=== PATIENT | male | born 1995 | race Caucasian/White ===

== ENCOUNTER 2016-11-21 07:36 | Emergency (ER) | payer OTHER ==
[2016-11-21 07:46] VITALS: BP 112/72
[2016-11-21 08:50] LABS: Basophils % (Auto) 0.2 % (0.0-1.8); Eosinophils % (Auto) 0.7 % (0.0-4.3); Hematocrit 49.7 % (35.5-45.6); Hemoglobin 17.1 gm/dl (11.8-15.2); Mean Corpuscular HGB Conc 35 % (32-34); Mean Corpuscular Hemoglobin 29 pg (28-32); Mean Corpuscular Volume 83 fl (84-94); Platelet Count 221 K/mm3 (140-440); Red Blood Count 6.02 M/mm3 (3.65-5.03); Red Cell Distribution Width 13.7 % (13.2-15.2); White Blood Count 13.1 K/mm3 (4.5-11.0)
[2016-11-21 08:57] LABS: Bilirubin,Urine NEG (Negative); Blood,Urine NEG (Negative); Ketones,Urine NEG (Negative); Leukocyte Esterase,Urine NEG (Negative); Nitrite,Urine NEG (Negative); Protein,Urine <15 mg/dL mg/dL (Negative); Urobilinogen,Urine < 2.0 mg/dL (<2.0); WBC,Urine < 1.0 /HPF (0.0-6.0)
[2016-11-21 09:02] LABS: Anion Gap 19 mmol/L; BUN/Creatinine Ratio 12.22; Blood Urea Nitrogen 11 mg/dL (9-20); Calcium 9.5 mg/dL (8.4-10.2); Carbon Dioxide 27 mmol/L (22-30); Chloride 100.4 mmol/L (98-107); Glucose 91 mg/dL (75-100); Potassium 4.5 mmol/L (3.6-5.0); Sodium 142 mmol/L (137-145)
[2016-11-21] MEDS ORDERED: BENTYL PO ONE ×2 (09:30→09:35)
[2016-11-21] MEDS ORDERED: ZOFRAN ODT PO ONE (09:35)
--- NOTE | 2016-11-21 09:35 | Emergency Department Report ---
Vomiting/Diarrhea - HPI Chief Complaint: Nausea/Vomiting/Diarrhea Stated Complaint: DIARRHEA Time Seen by Provider: 11/21/16 09:05 Duration: 2 Days Severity: moderate Nausea/Vomiting Severity: Mild Diarrhea Severity: Moderate Pain Location: Epigastric (cramping on and off) Pain Severity: Mild (2 out of 10) Symptoms: Yes Able to Tolerate Fluids, Yes Recent Unusual Foods, No Watery Diarrhea (patient reports stool has been bright consistency that you can slice) , No Bloody diarrhea, No Fever, No Recent Untreated Water, No Recent use of Antibiotics, No Family w/ Similar Symptoms, No Contacts w/ Similar Symptoms, No Rash, No Hematuria, No Recent URI Symptoms Other History: Report that he's been having in frequent stool with some nausea and abdominal cramping over the past couple days. He said the stool consistency is red like that you can flies. He had last stool at 5 AM this morning. Denies any fever or chills. Pain is 2 out of 10 that is cramping to her abdomen and it's on and off. Denies any blood in his stool. Denies any vomiting. No [id number] medication taken. Denies any recent R call use or any history of stomach ulcer. Denies any weakness. Denies any urinary burning frequency or urgency. He should also report that he's been under a lot of stress lately. ED Review of Systems ROS: Stated complaint: DIARRHEA Other details as noted in HPI Comment: All other systems reviewed and negative Constitutional: no symptoms reported Respiratory: no symptoms reported Cardiovascular: denies: chest pain, palpitations, edema, syncope Gastrointestinal: abdominal pain (cramping on and off), nausea, diarrhea. denies: vomiting, constipation, hematemesis, melena, hematochezia Genitourinary: denies: urgency, dysuria, frequency, hematuria, discharge, testicular pain, testicular mass Musculoskeletal: denies: back pain, joint swelling, arthralgia, myalgia Skin: denies: rash Neurological: denies: headache, weakness, numbness, paresthesias, confusion, abnormal gait, vertigo ED Past Medical Hx - Past Medical History Previous Medical History?: Yes - Surgical History Past Surgical History?: No - Family History Family history: no significant - Social History Smoking Status: Never Smoker Substance Use Type: None - Medications Home Medications: Home Medications Medication Instructions Recorded Confirmed Last Taken Type Amoxicillin [Trimox CAP] 500 mg PO Q8H #30 capsule 04/28/15 Unknown Rx Loratadine [Claritin] 10 mg PO DAILY #30 tablet 04/28/15 Unknown Rx Prednisone [predniSONE 10 mg 10 mg PO .TAPER #1 tab.ds.pk 04/28/15 Unknown Rx (6-Day Pack, 21 Tabs)] Promethazine /Codeine 5 ml PO Q6H PRN #150 ml 04/28/15 Unknown Rx [Phenergan/Codeine 6.25-10 mg/5 ml] Dicyclomine [Bentyl] 20 mg PO TID #9 bottle 11/21/16 Unknown Rx Ondansetron [Zofran Odt] 4 mg PO Q8HR #9 tab.rapdis 11/21/16 Unknown Rx Vomiting Diarrhea Exam - Exam General: Vital signs noted. No distress. Alert and acting appropriately. Is a 21-year-old male well-nourished well-developed and nontoxic in appearance. HEENT: Yes Moist Mucous Membranes, No Pharyngeal Erythema, No Pharyngeal Exudates, No Rhinorrhea, No Conjuctival Injection, No Frontal Tenderness, No Maxillary Tenderness Neck: No Adenopathy, No Rigidity Lungs: Yes Clear Lung Sounds, Yes Good Air Exchange, No Wheezes, No Stridor, No Cough, No Nasal Flaring, No Retractions, No Use of Accessory Muscles Heart exam: Regular: Yes, Murmur: No, Tachycardia: No Abdomen: Tenderness: No, Peritoneal Signs: No, Distention: No, Hyperactive Bowel sounds: No (mode bowel sounds.) Skin exam: Rash: No, Edema: No, Normal turgor: Yes Neurologic: Alert and oriented, no deficits. No focal neurological deficit. Musculoskeletal: Unremarkable. Normal examination ED Course Vital Signs 11/21/16 11/21/16 07:45 07:46 Temperature 98.2 F 98.2 F Pulse Rate 58 L 58 L Respiratory 16 16 Rate Blood Pressure 112/72 Blood Pressure 112/72 [Right] O2 Sat by Pulse 97 97 Oximetry - Reevaluation(s) Reevaluation #1: 11/21/16 10:41 until 40 mg by mouth and Zofran 4 mg ODT for nausea and stomach upset. He was also orally challenged in emergency room where he drank 3 cups of apple juice. Patient had no episode of vomiting or diarrhea while in the emergency room. Patient said he feels that much better. ED Medical Decision Making - Lab Data Result diagrams: 11/21/16 08:26 11/21/16 08:26 Lab Results 11/21/16 11/21/16 11/21/16 Range/Units 08:26 08:26 08:35 WBC 13.1 H (4.5-11.0) K/mm3 RBC 6.02 H (3.65-5.03) M/mm3 Hgb 17.1 H (11.8-15.2) gm/dl Hct 49.7 H (35.5-45.6) % MCV 83 L (84-94) fl MCH 29 (28-32) pg MCHC 35 H (32-34) % RDW 13.7 (13.2-15.2) % Plt Count 221 (140-440) K/mm3 Lymph % (Auto) 21.6 (13.4-35.0) % [place] % (Auto) 7.0 (0.0-7.3) % Eos % (Auto) 0.7 (0.0-4.3) % Baso % (Auto) 0.2 (0.0-1.8) % Lymph # 2.8 (1.2-5.4) K/mm3 [place] # 0.9 H (0.0-0.8) K/mm3 Eos # 0.1 (0.0-0.4) K/mm3 Baso # 0.0 (0.0-0.1) K/mm3 Seg Neutrophils % 70.5 H (40.0-70.0) % Seg Neutrophils # 9.3 H (1.8-7.7) K/mm3 Sodium 142 (137-145) mmol/L Potassium 4.5 (3.6-5.0) mmol/L Chloride 100.4 (98-107) mmol/L Carbon Dioxide 27 (22-30) mmol/L Anion Gap 19 mmol/L BUN 11 (9-20) mg/dL Creatinine 0.9 (0.8-1.5) mg/dL Estimated GFR > 60 ml/min BUN/Creatinine Ratio 12.22 % Glucose 91 (75-100) mg/dL Calcium 9.5 (8.4-10.2) mg/dL Urine Color Yellow (Yellow) Urine Turbidity Clear (Clear) Urine pH 6.0 (5.0-7.0) Ur Specific [place] 1.014 (1.003-1.030) Urine Protein <15 mg/dl (Negative) mg/dL Urine Glucose (UA) Neg (Negative) mg/dL Urine Ketones Neg (Negative) mg/dL Urine Blood Neg (Negative) Urine Nitrite Neg (Negative) Urine Bilirubin Neg (Negative) Urine Urobilinogen < 2.0 (<2.0) mg/dL Ur Leukocyte Esterase Neg (Negative) Urine WBC (Auto) < 1.0 (0.0-6.0) /HPF Urine RBC (Auto) 2.0 (0.0-6.0) /HPF - Medical Decision Making ED course: Pt here complaining of mild nausea with recurrent stool in and stomach upset for a few days. He is able to tolerate oral liquids. Patient was given Bentyl 40 mg by mouth, Zofran 4 mg ODT and was orally challenged in emergency room and drank 3 cups of apple juice without any nausea vomiting or diarrhea. He said he was feeling much better after drinking juice. Patient and CBC shows mild elevation in white count and hemoconcentration which suggests possible dehydration. BMP is stable and urinalysis is stable. I discussed the patient that he needs to eat a diet that is planned over the next 72 hours to include banana , rice, apple sauce and toast. I also encouraged him to avoid eating acidic and carbonated beverage and to drink 2-3 L of fluid to include Gatorade so he does not lose any electrolyte. Patient with nausea, stomach cramping and diarrhea. I discussed his lab work with him and he voiced understanding of diagnosis and treatment plan. Patient discharged home with prescription for Zofran, Benadryl. Critical care attestation.: If time is entered above; I have spent that time in minutes in the direct care of this critically ill patient, excluding procedure time. ED Disposition Clinical Impression: Acute diarrhea, Nausea alone, Abdominal cramps Disposition: TO HOME OR SELFCARE Is pt being admited?: No Does the pt Need Aspirin: No Condition: Stable Instructions: Acute Nausea and Vomiting (ED), Abdominal Pain (ED), Acute Diarrhea (ED), Gastroenteritis (ED), Nutrition Tips for Relief of Diarrhea (ED) Additional Instructions: increase your fluid intake to include water and Gatorade up to 2-3 L per day. Take Bentyl and Zofran as prescribed Follow-up via primary care physician in 2 days if he do not have one he can follow-up at [facility]. These followed discharge instruction diet Eat diet consisting of banana, rice, applesauce and toast. Please avoid carbonated and spicy food. Prescriptions: Dicyclomine [Bentyl] 20 mg PO TID #9 bottle Ondansetron [Zofran Odt] 4 mg PO Q8HR #9 tab.rapdis Referrals: PRIMARY CARE [Primary Care Provider] - 11/23/16 [facility] [Outside] - 11/23/16 Forms: Accompanied Note, Work/School Release Form(ED)
[2016-11-21] MEDS ORDERED: BENTYL ONE (09:41)
== END 2016-11-21 11:00 | disposition home or self-care (01) ==
LOC: ED 07:36
DX: R19.7 Diarrhea, unspecified (principal); R10.9 Unspecified abdominal pain; R11.0 Nausea
CPT/HCPCS: 36415; 80048; 81001; 85025; 99283; Q0162

== ENCOUNTER 2016-12-02 21:01 | Emergency (ER) | payer OTHER ==
[2016-12-02 21:51] LABS: Hematocrit 48.5 % (35.5-45.6); Hemoglobin 16.8 gm/dl (11.8-15.2); Mean Corpuscular HGB Conc 35 % (32-34); Mean Corpuscular Hemoglobin 28 pg (28-32); Mean Corpuscular Volume 82 fl (84-94); Platelet Count 203 K/mm3 (140-440); Red Blood Count 5.95 M/mm3 (3.65-5.03); Red Cell Distribution Width 13.6 % (13.2-15.2); White Blood Count 10.3 K/mm3 (4.5-11.0)
[2016-12-02 21:54] LABS: Bilirubin,Urine NEG (Negative); Blood,Urine NEG (Negative); Ketones,Urine NEG (Negative); Leukocyte Esterase,Urine NEG (Negative); Mucus,Urine FEW /HPF; Nitrite,Urine NEG (Negative); Protein,Urine <15 mg/dL mg/dL (Negative); RBC,Urine < 1.0 /HPF (0.0-6.0); Urobilinogen,Urine < 2.0 mg/dL (<2.0); WBC,Urine < 1.0 /HPF (0.0-6.0)
[2016-12-02 21:58] LABS: Alanine Aminotransferase 40 units/L (7-56); Albumin 4.4 g/dL (3.9-5); Albumin/Globulin Ratio 1.6 %; Alkaline Phosphatase 89 units/L (35-129); Anion Gap 18 mmol/L; BUN/Creatinine Ratio 14; Blood Urea Nitrogen 15 mg/dL (9-20); Calcium 9.5 mg/dL (8.4-10.2); Carbon Dioxide 28 mmol/L (22-30); Chloride 100.7 mmol/L (98-107); Glucose 97 mg/dL (75-100); Lipase 29 units/L (13-60); Potassium 4.3 mmol/L (3.6-5.0); Sodium 142 mmol/L (137-145); Total Protein 7.1 g/dL (6.3-8.2)
[2016-12-02 23:02] LABS: Basophils % (Manual) 0 % (0.0-1.8); Blastocytes % (Manual) 0 %; Eosinophils % (Manual) 0 % (0.0-4.3); RBC Morphology Normal
[2016-12-02 23:03] LABS: Diff Status Complete
[2016-12-03] MEDS ORDERED: BENTYL IM ONE (01:07)
[2016-12-03] MEDS ORDERED: TORADOL IM ONE (01:07)
--- NOTE | 2016-12-03 01:13 | Emergency Department Report ---
ED Abdominal Pain HPI - General Chief Complaint: Abdominal Pain Stated Complaint: lower abd pain Time Seen by Provider: 12/02/16 23:54 Source: patient Mode of arrival: Ambulatory Limitations: No Limitations - History of Present Illness Initial Comments: Pt presents to ED with abdominal pains located in his LLQ x 1 day. Pain is colicky in nature and radiates across his lower abdomin to his suprapubic region. Pt denies N/V/D. Pt has almost similar problem on 11/21/16. No fever, no cough. Pt recalls havinh infrequent bowel movements Complaint: abdominal pain -: Gradual, days(s) (1) Location: LLQ Radiation: suprapubic Migration to: no migration Severity: moderate Severity scale (0 -10): 6 Quality: stabbing, aching, sharp Consistency: intermittent Improves With: nothing Worsens With: nothing Associated Symptoms: constipation. denies: nausea, vomiting, diarrhea, fever, chills, dysuria, hematemesis, hematochezia, melena, hematuria, anorexia, syncope - Related Data Previous Rx's Medication Instructions Recorded Last Taken Type Amoxicillin [Trimox CAP] 500 mg PO Q8H #30 capsule 04/28/15 Unknown Rx Loratadine [Claritin] 10 mg PO DAILY #30 tablet 04/28/15 Unknown Rx Prednisone [predniSONE 10 mg 10 mg PO .TAPER #1 tab.ds.pk 04/28/15 Unknown Rx (6-Day Pack, 21 Tabs)] Promethazine /Codeine 5 ml PO Q6H PRN #150 ml 04/28/15 Unknown Rx [Phenergan/Codeine 6.25-10 mg/5 ml] Dicyclomine [Bentyl] 20 mg PO TID #9 bottle 11/21/16 Unknown Rx Ondansetron [Zofran Odt] 4 mg PO Q8HR #9 tab.rapdis 11/21/16 Unknown Rx Hyoscyamine Subl [Levsin Sl 0.125 0.25 mg SL Q6HR PRN #32 tab 12/03/16 Unknown Rx TAB] Ibuprofen [Motrin 600 MG tab] 600 mg PO Q6H PRN #30 tablet 12/03/16 Unknown Rx Lactulose [Cephulac] 20 gm PO Q12H #300 ml 12/03/16 Unknown Rx Ondansetron [Zofran Odt] 4 mg PO Q8H PRN #020 tab.rapdis 12/03/16 Unknown Rx Allergies Allergy/AdvReac Type Severity Reaction Status Date / Time No Known Allergies Allergy Verified 11/21/16 09:42 ED Review of Systems ROS: Stated complaint: lower abd pain Other details as noted in HPI Comment: All other systems reviewed and negative Constitutional: denies: chills, diaphoresis, fever, malaise, weakness Eyes: denies: eye pain, eye discharge, vision change ENT: denies: ear pain, throat pain, dental pain, hearing loss Respiratory: denies: cough, orthopnea, shortness of breath, SOB with exertion, wheezing Cardiovascular: denies: chest pain, palpitations, dyspnea on exertion, edema, syncope Endocrine: no symptoms reported Gastrointestinal: abdominal pain, constipation. denies: nausea, vomiting, diarrhea, hematemesis, hematochezia Genitourinary: denies: urgency, dysuria, frequency, hematuria Musculoskeletal: denies: joint swelling, arthralgia Skin: denies: as per HPI, lesions, change in color, change in hair/nails ED Past Medical Hx - Past Medical History Previous Medical History?: Yes Hx Hypertension: Yes - Surgical History Past Surgical History?: No - Social History Smoking Status: Never Smoker - Medications Home Medications: Home Medications Medication Instructions Recorded Confirmed Last Taken Type Amoxicillin [Trimox CAP] 500 mg PO Q8H #30 capsule 04/28/15 Unknown Rx Loratadine [Claritin] 10 mg PO DAILY #30 tablet 04/28/15 Unknown Rx Prednisone [predniSONE 10 mg 10 mg PO .TAPER #1 tab.ds.pk 04/28/15 Unknown Rx (6-Day Pack, 21 Tabs)] Promethazine /Codeine 5 ml PO Q6H PRN #150 ml 04/28/15 Unknown Rx [Phenergan/Codeine 6.25-10 mg/5 ml] Dicyclomine [Bentyl] 20 mg PO TID #9 bottle 11/21/16 Unknown Rx Ondansetron [Zofran Odt] 4 mg PO Q8HR #9 tab.rapdis 11/21/16 Unknown Rx Hyoscyamine Subl [Levsin Sl 0.125 0.25 mg SL Q6HR PRN #32 tab 12/03/16 Unknown Rx TAB] Ibuprofen [Motrin 600 MG tab] 600 mg PO Q6H PRN #30 tablet 12/03/16 Unknown Rx Lactulose [Cephulac] 20 gm PO Q12H #300 ml 12/03/16 Unknown Rx Ondansetron [Zofran Odt] 4 mg PO Q8H PRN #020 tab.rapdis 12/03/16 Unknown Rx ED Physical Exam - General Limitations: No Limitations General appearance: alert, in distress (in mild to moderate distress) - Head Head exam: Present: atraumatic, normocephalic, normal inspection - Eye Eye exam: Present: normal appearance, PERRL, EOMI. Absent: scleral icterus, conjunctival injection, nystagmus Pupils: Present: normal accommodation - ENT ENT exam: Present: normal exam, normal orophraynx, mucous membranes moist, TM's normal bilaterally - Neck Neck exam: Present: normal inspection, full ROM. Absent: tenderness, meningismus, lymphadenopathy - Respiratory Respiratory exam: Present: normal lung sounds bilaterally. Absent: wheezes, rales, rhonchi, stridor, chest wall tenderness, accessory muscle use, decreased breath sounds, prolonged expiratory - Cardiovascular Cardiovascular Exam: Present: bradycardia, normal heart sounds. Absent: regular rate, tachycardia, irregular rhythm, systolic murmur, diastolic murmur - GI/Abdominal GI/Abdominal exam: Present: soft, tenderness (LLQ), guarding (mild), diminished bowel sounds. Absent: rebound, rigid, pulsatile mass, hernia - Rectal Rectal exam: Present: deferred - Extremities Exam Extremities exam: Present: normal inspection, normal capillary refill. Absent: full ROM, tenderness, pedal edema, joint swelling - Back Exam Back exam: Present: normal inspection, full ROM. Absent: tenderness, CVA tenderness (L) - Neurological Exam Neurological exam: Present: alert, oriented X3, CN II-XII intact, normal gait ED Course Vital Signs 12/02/16 12/03/16 21:07 01:40 Temperature 69.9 F L Pulse Rate 54 L Respiratory 18 18 Rate Blood Pressure 118/71 O2 Sat by Pulse 98 Oximetry - Reevaluation(s) Reevaluation #1: 12/03/16 01:54 pT FEELS SLIGHTLY BETTER AFTER im bENTYL AND TORADOL ED Medical Decision Making - Lab Data Result diagrams: 12/02/16 21:21 12/02/16 21:21 Critical Care Time: No Critical care attestation.: If time is entered above; I have spent that time in minutes in the direct care of this critically ill patient, excluding procedure time. ED Disposition Clinical Impression: Fecal impaction of colon, Abdominal cramps Disposition: TO HOME OR SELFCARE Is pt being admited?: No Does the pt Need Aspirin: No Condition: Stable Instructions: Fecal Impaction (ED) Additional Instructions: Follow up with your PCP in 2-3 days Prescriptions: Hyoscyamine Subl [Levsin Sl 0.125 TAB] 0.25 mg SL Q6HR PRN #32 tab PRN Reason: Colic Ibuprofen [Motrin 600 MG tab] 600 mg PO Q6H PRN #30 tablet PRN Reason: Pain Lactulose [Cephulac] 20 gm PO Q12H #300 ml Ondansetron [Zofran Odt] 4 mg PO Q8H PRN #020 tab.rapdis PRN Reason: Nausea Referrals: PRIMARY CARE,MD [Primary Care Provider] - 3-5 Days Time of Disposition: 02:00
[2016-12-03 02:22] VITALS: BP 117/51
== END 2016-12-03 02:22 | disposition home or self-care (01) ==
LOC: ED 21:01
DX: K56.41 Fecal impaction (principal); I10 Essential (primary) hypertension
CPT/HCPCS: 36415; 80053; 81001; 83690; 85007; 85025; 96372; 99283; J0500; J1885

== ENCOUNTER 2017-03-04 10:20 | Emergency (ER) | payer SELFPAY ==
--- NOTE | 2017-03-04 10:52 | XRay Report ---
Right hand 3 views: History: Pain and swelling. Findings: No bony or articular abnormality. No fracture dislocation or soft tissue calcification. Impression: Essentially negative right hand.
[2017-03-04] MEDS ORDERED: MOTRIN PO ONE (13:45)
--- NOTE | 2017-03-04 13:48 | Emergency Department Report ---
ED Upper Extremity Inj HPI - General Chief Complaint: Extremity Injury, Upper Stated Complaint: RIGHT HAND PAIN Source: patient Mode of arrival: Ambulatory Limitations: No Limitations - History of Present Illness Initial Comments: 22 y/o nontoxic in appearance M presents today complaining of R ulnar side knuckle pain and swelling. Pt states that he was angry last night and punched the door. He states this happened about 5 AM yesterday morning. Pt reports to pain and swelling at the site. He states that he pain increases with flexing the 5th right digit. Pt has not tried anything for the pain at this time. 9/ 10 in severity at this time. NKDA. DUCKWORTH Complaint: Injury to:: right, hand -: days(s) (1) Other Extremity Injury: Fingers: Right (mostly at the ulnar aspect of the R 5th digit- knuckle region), Hand: Right (at the 5th knuckle region) Other Injuries: none Handedness: right Place: home Severity scale (0 -10): 9 Improves With: none Worsens With: none Context: injury - Related Data Previous Rx's Medication Instructions Recorded Last Taken Type Amoxicillin [Trimox CAP] 500 mg PO Q8H #30 capsule 04/28/15 Unknown Rx Loratadine [Claritin] 10 mg PO DAILY #30 tablet 04/28/15 Unknown Rx Prednisone [predniSONE 10 mg 10 mg PO .TAPER #1 tab.ds.pk 04/28/15 Unknown Rx (6-Day Pack, 21 Tabs)] Promethazine /Codeine 5 ml PO Q6H PRN #150 ml 04/28/15 Unknown Rx [Phenergan/Codeine 6.25-10 mg/5 ml] Dicyclomine [Bentyl] 20 mg PO TID #9 bottle 11/21/16 Unknown Rx Ondansetron [Zofran Odt] 4 mg PO Q8HR #9 tab.rapdis 11/21/16 Unknown Rx Hyoscyamine Subl [Levsin Sl 0.125 0.25 mg SL Q6HR PRN #32 tab 12/03/16 Unknown Rx TAB] Ibuprofen [Motrin 600 MG tab] 600 mg PO Q6H PRN #30 tablet 12/03/16 Unknown Rx Lactulose [Cephulac] 20 gm PO Q12H #300 ml 12/03/16 Unknown Rx Ondansetron [Zofran Odt] 4 mg PO Q8H PRN #020 tab.rapdis 12/03/16 Unknown Rx Diclofenac Sodium 50 mg PO BID PRN #20 tab 03/04/17 Unknown Rx Allergies Allergy/AdvReac Type Severity Reaction Status Date / Time No Known Allergies Allergy Verified 03/04/17 10:28 ED Review of Systems ROS: Stated complaint: RIGHT HAND PAIN Other details as noted in HPI Constitutional: denies: chills, fever Eyes: denies: eye pain, eye discharge, vision change ENT: denies: ear pain, throat pain Respiratory: denies: cough, shortness of breath, wheezing Cardiovascular: denies: chest pain, palpitations Gastrointestinal: denies: abdominal pain, nausea, diarrhea Genitourinary: denies: urgency, dysuria Musculoskeletal: joint swelling, myalgia, other (5th digit right- knuckle pain and swelling ) Skin: other (redness and swelling at the ulnar aspect of the right hand) Neurological: denies: headache, weakness, paresthesias Psychiatric: denies: anxiety, depression Hematological/Lymphatic: denies: easy bleeding, easy bruising ED Past Medical Hx - Past Medical History Previous Medical History?: No Hx Hypertension: Yes - Surgical History Past Surgical History?: No - Social History Smoking Status: Never Smoker Substance Use Type: None - Medications Home Medications: Home Medications Medication Instructions Recorded Confirmed Last Taken Type Amoxicillin [Trimox CAP] 500 mg PO Q8H #30 capsule 04/28/15 Unknown Rx Loratadine [Claritin] 10 mg PO DAILY #30 tablet 04/28/15 Unknown Rx Prednisone [predniSONE 10 mg 10 mg PO .TAPER #1 tab.ds.pk 04/28/15 Unknown Rx (6-Day Pack, 21 Tabs)] Promethazine /Codeine 5 ml PO Q6H PRN #150 ml 04/28/15 Unknown Rx [Phenergan/Codeine 6.25-10 mg/5 ml] Dicyclomine [Bentyl] 20 mg PO TID #9 bottle 11/21/16 Unknown Rx Ondansetron [Zofran Odt] 4 mg PO Q8HR #9 tab.rapdis 11/21/16 Unknown Rx Hyoscyamine Subl [Levsin Sl 0.125 0.25 mg SL Q6HR PRN #32 tab 12/03/16 Unknown Rx TAB] Ibuprofen [Motrin 600 MG tab] 600 mg PO Q6H PRN #30 tablet 12/03/16 Unknown Rx Lactulose [Cephulac] 20 gm PO Q12H #300 ml 12/03/16 Unknown Rx Ondansetron [Zofran Odt] 4 mg PO Q8H PRN #020 tab.rapdis 12/03/16 Unknown Rx Diclofenac Sodium 50 mg PO BID PRN #20 tab 03/04/17 Unknown Rx ED Physical Exam - General Limitations: No Limitations General appearance: alert, in no apparent distress - Head Head exam: Present: atraumatic, normocephalic - Eye Eye exam: Present: normal appearance, PERRL, EOMI - ENT ENT exam: Present: mucous membranes moist - Neck Neck exam: Present: normal inspection - Respiratory Respiratory exam: Present: normal lung sounds bilaterally. Absent: respiratory distress - Cardiovascular Cardiovascular Exam: Present: regular rate, normal rhythm. Absent: systolic murmur, diastolic murmur, rubs, gallop - Extremities Exam Extremities exam: Present: tenderness, joint swelling, other (of the affected R hand- ulnar aspect) - Expanded Upper Extremity Exam Right Upper Arm exam: Present: normal inspection, full ROM Elbow exam: Present: normal inspection, full ROM Forearm Wrist exam: Present: normal inspection, full ROM Hand Wrist exam: Present: other (there is swelling and ttp at the knuckle aspect of the 4th and 5th right hand, no open injury, increased pain with flexion of the digits, however, ROM is normal, sensation and pulses are normal, 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 Absent: rash ED Course Vital Signs 03/04/17 03/04/17 10:24 14:31 Temperature 98.5 F Pulse Rate 99 H 79 Respiratory 16 18 Rate Blood Pressure 115/60 Blood Pressure 124/57 [Right] O2 Sat by Pulse 97 99 Oximetry ED Medical Decision Making - Radiology Data Radiology results: report reviewed right hand xr: no bony or articular abnormality. no fracture dislocation or soft tissue calcifitcation. impression: essentially negative right hand. - Medical Decision Making Hx of right hand injury/contusion s/p punching a wall. Xray of right was unremarkable for any acute issues. Pt was given Ibuprofen 600 mg here in the ED with relief of the pain, he was then discharged home with Diclofenac sodium 50 mg BID for the painn, RICE therapy was encouraged, and MARIA INES wrap was provided. Pt was given a referral to orthopedics. he was alert and oriented, no resp distress, speaking full sentences, and vitals stable upon discharge. Hemodynamically and neurovascularly intact. Critical care attestation.: If time is entered above; I have spent that time in minutes in the direct care of this critically ill patient, excluding procedure time. ED Disposition Clinical Impression: Contusion of right hand Qualifiers: Encounter type: initial encounter Qualified Code(s): S60.221A - Contusion of right hand, initial encounter Disposition: - TO HOME OR SELFCARE Is pt being admited?: No Does the pt Need Aspirin: No Condition: Stable Instructions: Diclofenac (By mouth), Contusion in Adults (ED), RICE Therapy (ED ) Additional Instructions: Please take anti-inflammatory as needed for the pain. RICE= rest, ice, compress , and elevate the joint above the level of the heart. Please follow-up with PCP within 1 week. Orthopedic referral provided for you today. Return to the ER immediately if your presenting symptoms acutely progress or worsen. Prescriptions: Diclofenac Sodium 50 mg PO BID PRN #20 tab PRN Reason: inflammation and swelling Referrals: STEVE HOLLEY MD [Primary Care Provider] - 3-5 Days RICK WARNER MD [Staff Physician] - 3-5 Days Forms: Work/School Release Form(ED)
[2017-03-04 14:31] VITALS: BP 124/57
== END 2017-03-04 15:28 | disposition home or self-care (01) ==
LOC: ED 10:20
DX: S60.221A Contusion of right hand, initial encounter (principal); I10 Essential (primary) hypertension; W22.8XXA Striking against or struck by other objects, initial encounter; Y93.89 Activity, other specified; Y92.89 Other specified places as the place of occurrence of the external cause; Y99.8 Other external cause status
CPT/HCPCS: 99283